=== PATIENT | male | born 1980 | race Caucasian/White ===

== ENCOUNTER 2022-04-13 13:02 | Emergency (ER) | payer OTHER, SELFPAY ==
[2022-04-13 13:08] VITALS: BP 119/78; PULSE 86; RESP 14; TEMP 36.8; O2SAT 98
--- NOTE | 2022-04-13 13:21 | ED.EYEPROB ---
HPI - Eye Problem General Chief complaint: Eye Problems Stated complaint: Left eye injury Time Seen by Provider: 04/13/22 13:10 Source: patient Mode of arrival: ambulatory Limitations: no limitations History of Present Illness HPI Narrative: Mr. Kelly is a 41-year-old male patient presenting to the clinic today with complaints of left eye pain. He reports that he was weed eating and something hit him in his left eye. He reports that he is having a lot of pain and watering to the left eye pain. He is having photosensitivity to the left eye as well as blurry vision. Visual acuity completed in the clinic Related Data Home Medications Medication Instructions Recorded Confirmed No Home Medications 04/13/22 04/13/22 Allergies Allergy/AdvReac Type Severity Reaction Status Date / Time No Known Allergies Allergy Verified 04/13/22 13:16 Review of Systems Review of Systems: Pertinent positives per HPI. Patient denies any fever, chills, rash, headache, dizziness, cough, runny nose, sore throat, shortness of breath, chest pain, palpitations, nausea, vomiting, diarrhea, constipation, abdominal pain, or any urinary issues. PMFSH Comments At the time of my signature, I reviewed and agree with the nursing past medical, surgical, social, and family history. There is no relevant family history pertinent to the patient complaint. Exam Narrative: General: Well-developed, well nourished, in no apparent distress Head: Normocephalic, atraumatic Eyes: Pupils equally round and reactive to light bilaterally, EOM intact, right sclera and conjunctive clear, left sclera and conjunctive are mildly injected, watery discharge from the left eye, lids normal, no foreign body visualized in the left eye, Jean lamp exam performed and shows a large corneal abrasion to the mid cornea over the visual field. Ears: TMs intact and clear, ear canals clear, no drainage, grossly hearing normal. Nose: Nares patent, no discharge, no inflammation, no sinus tenderness. Mouth: Oropharynx without lesions or masses, good dentition, MMM. Neck: Supple, trachea midline, no enlargement of anterior or posterior cervical nodes, no thyroid masses or goiter palpable. Cardio: Regular rate and rhythm, s1 and s2 normal, no murmur appreciated. Resp: Clear to auscultation bilaterally anteriorly and posteriorly, no rhonchi, rales, wheezing or rubs Course Course Emergency Course: Portions of this record may have been created with voice recognition software. Level of Care: Express Care Visit Vital Signs Vital signs: Vital Signs Temperature 36.8 C 04/13/22 13:08 Pulse Rate 86 04/13/22 13:08 Respiratory Rate 14 04/13/22 13:08 Blood Pressure 119/78 04/13/22 13:08 Pulse Oximetry 98 04/13/22 13:08 Oxygen Delivery Room Air 04/13/22 13:08 Temperature 36.8 C 04/13/22 13:08 Pulse Rate 86 04/13/22 13:08 Respiratory Rate 14 04/13/22 13:08 Blood Pressure 119/78 04/13/22 13:08 Pulse Oximetry 98 04/13/22 13:08 Oxygen Delivery Room Air 04/13/22 13:08 Vital signs reviewed Procedures Other Procedure Procedure 1: Other Procedure: 2 drops of topical anesthetic (tetracaine) was instilled with good anesthesia into the left eye. Fluorescein stain of the left eye was performed.large corneal abrasion over the visual field to the mid cornea was noted. No FB or dendritic lesions was noted Upper lid was everted and no FB or lesions were noted. NO Pasha sign. Normal saline irrigation eye solution was performed and the patient tolerated the procedure well, no adverse reaction or complications. MDM - Eye Problem MDM Narrative Medical decision making narrative: At the time of visit patient is resting comfortably on the exam table. Patient has a large corneal abrasion over the visual field in the mid cornea. Recommend seeing eye doctor today to discuss patching this using a Band-Aid contact. Supportive measures were discussed with the
== END 2022-04-13 13:40 | disposition home or self-care (01) ==
PROVIDERS: Emergency Provider Nurse Practitioner Family; PCP Internal Medicine
DX: S05.02XA Injury of conjunctiva and corneal abrasion without foreign body, left eye, initial encounter (principal); W20.8XXA Other cause of strike by thrown, projected or falling object, initial encounter
CPT/HCPCS: 99213; A9270; G0463